=== PATIENT | male | born 2000 | race African-American/Black ===

== ENCOUNTER 2022-03-09 08:17 | Emergency (ER) | payer OTHER ==
[2022-03-09 08:37] LABS: Urine Blood Trace-intact (Negative); Urine Glucose Negative (Negative); Urine Protein 2+ (Negative); Urine Specific Gravity 1.025 (1.005-1.030); Urine pH 6.5 (5.0-7.0)
[2022-03-09] MEDS ORDERED: AZITHROMYCIN 250 MG TAB ONE (09:10)
[2022-03-09] MEDS ORDERED: CEFTRIAXONE 1000 MG/VIAL ONE (09:10)
[2022-03-09] MEDS ORDERED: WATER FOR INJ,STERILE 10 ML ONE (09:11)
[2022-03-09] MEDS ORDERED: DOXYCYCLINE 100 MG CAP PO ONE (09:11)
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
[2022-03-09 09:51] LABS: Urine Mucus Slight /HPF (None Seen); Urine WBC Clump Rare /HPF (None Seen)
[2022-03-11 03:03] VITALS: BP 122/99; TEMP 97.9; O2SAT 100
== END 2022-03-09 10:06 | disposition home or self-care (01) ==
LOC: ER 08:17
DX: N34.1 Nonspecific urethritis (principal); J02.9 Acute pharyngitis, unspecified; R30.0 Dysuria; Z20.822 Contact with and (suspected) exposure to COVID-19
CPT/HCPCS: 87070; 87081; 87804 ×2; 96372; 99283; U0003; 81003; 81015